=== PATIENT | female | born 1975 | race African-American/Black ===

== ENCOUNTER 2020-08-22 19:49 | Emergency (ER) | payer OTHER ==
[~2020-08-22] VITALS: Ht 167.6 cm; Wt 65.9 kg
[~2020-08-22 19:49] MED LIST: ARIP10TA8 PO; SERT-158 PO
[2020-08-22] MEDS ORDERED: IBUPROFEN 400 MG TABLET PO ONE (20:30)
[2020-08-22] MEDS ORDERED: ACETAMINOPHEN 325 MG TABLET PO ONE (20:30)
[2020-08-22] MEDS ORDERED: LIDOCAINE 5% TRANSDERMAL PATCH TD ONE (20:30)
[2020-08-22 20:51] VITALS: BP 147/85
== END 2020-08-22 20:56 | disposition home or self-care (01) ==
LOC: EMS 19:49
DX: M25.512 Pain in left shoulder (principal); E11.9 Type 2 diabetes mellitus without complications; F20.9 Schizophrenia, unspecified; F17.210 Nicotine dependence, cigarettes, uncomplicated; V49.9XXA Car occupant (driver) (passenger) injured in unspecified traffic accident, initial encounter; Y93.89 Activity, other specified; Y92.89 Other specified places as the place of occurrence of the external cause; Y99.8 Other external cause status
CPT/HCPCS: 99283; 99284